=== PATIENT | female | born 1945 | race Caucasian/White ===

== ENCOUNTER 2023-04-18 23:03 | Inpatient (IN) | payer MEDICARE ==
[~2023-04-18] VITALS: Ht 165.1 cm; Wt 65.8 kg
[~2023-04-18 23:03] MED LIST: ALPHA LIPOIC A600 M1 PO; COLLAGEN PEPTIDE; COQ-10100 MG PO; DHEA 10 MG TAB1 EACH PO; FISH OIL 1,0001 EACH PO; L-CARNITINE500 MG PO; LUTEIN 15 MG S1 EACH PO; MAGNESIUM OXID400 MG PO; MELATONIN3 MG PO; PROGESTERONE100 MG PO; VITAMIN C1000 MG PO; [UNRECOGNIZED DRUG - OTHER] PO; [UNRECOGNIZED DRUG - OTHER] PO
[2023-04-18] MEDS ORDERED: SODIUM CHLORIDE 0.9% 1000ML 1,000 ML IV STA (23:11)
[2023-04-18] MEDS ORDERED: ACETAMINOPHEN 325 MG TAB PO STA (23:11)
[2023-04-18] MEDS ORDERED: ONDANSETRON HCL INJ 2MG/ML 2ML 2 MG/ML VIAL IV STA (23:20)
[2023-04-18 23:32] LABS: BASOPHILS % 0.2 % (0.0-1.0); EOSINOPHILS % 0.3 % (0.0-6.0); HEMATOCRIT 32.7 % (34.2-44.1); HEMOGLOBIN 11.4 g/dL (12.0-16.0); LYMPHOCYTES # (AUTO) 0.3 (1.0-3.2); MEAN CORPUSCULAR HEMOGLOBIN 28.7 pg (28-32); MEAN CORPUSCULAR HGB CONC 34.9 g/dL (31-35); MEAN CORPUSCULAR VOLUME 82.4 fL (81-99); MONOCYTES % 0.5 % (4.4-11.3); NEUTROPHILS # (AUTO) 5.7 (2.1-6.9); NEUTROPHILS % 92.9 % (38.7-80.0); PLATELET COUNT 178 x10e3/uL (140-360); RED BLOOD COUNT 3.97 x10e6/uL (3.6-5.1); RED CELL DISTRIBUTION WIDTH 13.3 % (11.7-14.4); WHITE BLOOD COUNT 6.16 x10e3/uL (4.8-10.8)
[2023-04-18 23:39] LABS: CLARITY,URINE CLEAR (CLEAR); COLOR,URINE YELLOW (YELLOW); KETONES,URINE NEGATIVE (NEGATIVE); LEUKOCYTE ESTERASE ,URINE NEGATIVE (NEGATIVE); NITRITE,URINE NEGATIVE (NEGATIVE); PROTEIN,URINE DIPSTICK NEGATIVE (NEGATIVE); URINE UROBILINOGEN 0.2 mg/dL (0.2 - 1)
[2023-04-18 23:41] LABS: WBC,URINE (MAN) 0-5 /HPF (0-5)
[2023-04-18 23:42] LABS: BACTERIA,URINE FEW /HPF; EPITHELIAL CELLS,URINE FEW /LPF
[2023-04-18 23:53] LABS: ALANINE AMINOTRANSFERASE 68 IU/L (0-55); ALBUMIN 3.5 g/dL (3.5-5.0); ALBUMIN/GLOBULIN RATIO 1.2 (0.8-2.0); ALKALINE PHOSPHATASE 99 IU/L (40-150); ANION GAP 16.4 mmol/L (8-16); BLOOD UREA NITROGEN 15 mg/dL (7-26); BUN/CREATININE RATIO 20 (6-25); CALCIUM 9.1 mg/dL (8.4-10.2); CARBON DIOXIDE 25 mmol/L (22-29); CHLORIDE 103 mmol/L (98-107); CREATINE KINASE 53 IU/L (29-168); CREATININE, SERUM 0.74 mg/dL (0.57-1.11); POTASSIUM 3.4 mmol/L (3.5-5.1); SODIUM 141 mmol/L (136-145)
[2023-04-19] VITALS (39 sets, daily range): BP systolic 83–121; BP diastolic 44–78; PULSE 83–126; RESP 8–23; TEMP 98.3–102.8; O2SAT 85–100
[2023-04-19] MEDS ORDERED: IOPAMIDOL 370 MG/ML 100 ML INFUS..BTL INJ ONE (00:10)
[2023-04-19] MEDS ORDERED: SODIUM CHLORIDE 0.9% 1000ML 1,000 ML IV ONE (00:15)
[2023-04-19] MEDS ORDERED: SODIUM CHLORIDE 0.9% 1000ML 1,000 ML IV STA (01:22)
[2023-04-19] MEDS ORDERED: Morphine 4mg INJECTION 4 MG/ML INJ IV PRN (01:30)
[2023-04-19] MEDS ORDERED: ONDANSETRON HCL INJ 2MG/ML 2ML 2 MG/ML VIAL IV PRN (01:30)
[2023-04-19] MEDS: SODIUM CHLORIDE 0.9% 1000ML 1,000 ML IV SCH ×2 (04:26→12:32)
[2023-04-19] MEDS ORDERED: ACETAMINOPHEN 1000 MG/100 ML IV PRN (10:00)
[2023-04-19] MEDS: METRONIDAZOLE 500MG/NS 100ML 100 ML IV SCH ×2 (12:19→19:52)
[2023-04-19] MEDS ORDERED: SODIUM CHLORIDE 0.9% 500ML 500 ML IV ONE (15:00)
[2023-04-19] MEDS: POTASSIUM CHLORIDE 40 MEQ in SODIUM CHLORIDE 0.9% 1000ML 1,000 ML IV SCH ×2 (16:14→23:33)
[2023-04-20] VITALS (21 sets, daily range): BP systolic 98–140; BP diastolic 53–88; PULSE 55–106; RESP 17–27; TEMP 97.7–100.5; O2SAT 94–99
[2023-04-20 06:15] LABS: BASOPHILS % 0.3 % (0.0-1.0); EOSINOPHILS % 0.1 % (0.0-6.0); HEMATOCRIT 28.3 % (34.2-44.1); HEMOGLOBIN 9.6 g/dL (12.0-16.0); LYMPHOCYTES # (AUTO) 0.6 (1.0-3.2); MEAN CORPUSCULAR HGB CONC 33.9 g/dL (31-35); MEAN CORPUSCULAR VOLUME 85.5 fL (81-99); MONOCYTES # (AUTO) 0.5 (0.2-0.8); MONOCYTES % 7.4 % (4.4-11.3); NEUTROPHILS # (AUTO) 5.7 (2.1-6.9); NEUTROPHILS % 82.6 % (38.7-80.0); PLATELET COUNT 161 x10e3/uL (140-360); RED BLOOD COUNT 3.31 x10e6/uL (3.6-5.1); RED CELL DISTRIBUTION WIDTH 14.1 % (11.7-14.4); WHITE BLOOD COUNT 6.89 x10e3/uL (4.8-10.8)
[2023-04-20 06:53] LABS: ALBUMIN 2.5 g/dL (3.5-5.0); ANION GAP 12.5 mmol/L (8-16); CREATININE, SERUM 0.63 mg/dL (0.57-1.11); POTASSIUM 3.5 mmol/L (3.5-5.1)
[2023-04-20] MEDS: POTASSIUM CHLORIDE 40 MEQ in SODIUM CHLORIDE 0.9% 1000ML 1,000 ML IV SCH (15:37)
[2023-04-20] MEDS: HYDROCODONE/APAP 5MG-325MG TAB PO PRN ×2 (15:37→21:10)
[2023-04-21] VITALS (26 sets, daily range): BP systolic 102–140; BP diastolic 58–83; PULSE 41–97; RESP 13–27; TEMP 97.6–100.3; O2SAT 94–100
[2023-04-21] MEDS: POTASSIUM CHLORIDE 40 MEQ in SODIUM CHLORIDE 0.9% 1000ML 1,000 ML IV SCH ×3 (06:26→20:17)
[2023-04-21] MEDS: HYDROCODONE/APAP 5MG-325MG TAB PO PRN ×5 (08:12→20:37)
[2023-04-22] VITALS (19 sets, daily range): BP systolic 108–147; BP diastolic 67–90; PULSE 80–99; RESP 12–25; TEMP 98.5–100.3; O2SAT 95–100
[2023-04-22] MEDS: POTASSIUM CHLORIDE 40 MEQ in SODIUM CHLORIDE 0.9% 1000ML 1,000 ML IV SCH ×2 (05:42→15:54)
[2023-04-22] MEDS: HYDROCODONE/APAP 5MG-325MG TAB PO PRN ×2 (09:19→21:36)
[2023-04-22 11:45] LABS: BASOPHILS % 0.1 % (0.0-1.0); EOSINOPHILS # (AUTO) 0.1 (0.0-0.4); EOSINOPHILS % 0.8 % (0.0-6.0); HEMATOCRIT 30.2 % (34.2-44.1); HEMOGLOBIN 10.7 g/dL (12.0-16.0); LYMPHOCYTES # (AUTO) 0.6 (1.0-3.2); LYMPHOCYTES % 7.9 % (18.0-39.1); MEAN CORPUSCULAR HEMOGLOBIN 28.5 pg (28-32); MEAN CORPUSCULAR HGB CONC 35.4 g/dL (31-35); MEAN CORPUSCULAR VOLUME 80.3 fL (81-99); MONOCYTES # (AUTO) 0.7 (0.2-0.8); MONOCYTES % 8.7 % (4.4-11.3); NEUTROPHILS # (AUTO) 6.3 (2.1-6.9); NEUTROPHILS % 82.1 % (38.7-80.0); PLATELET COUNT 215 x10e3/uL (140-360); RED BLOOD COUNT 3.76 x10e6/uL (3.6-5.1); RED CELL DISTRIBUTION WIDTH 13.7 % (11.7-14.4); WHITE BLOOD COUNT 7.63 x10e3/uL (4.8-10.8)
[2023-04-22 11:59] LABS: ANION GAP 11.7 mmol/L (8-16); CALCIUM 8.8 mg/dL (8.4-10.2); CREATININE, SERUM 0.62 mg/dL (0.57-1.11); POTASSIUM 3.7 mmol/L (3.5-5.1)
[2023-04-22] MEDS ORDERED: ONDANSETRON HCL 4 MG ORAL DISINTEGRATING TAB PO PRN (15:00)
[2023-04-23] VITALS (11 sets, daily range): BP systolic 112–127; BP diastolic 69–86; PULSE 80–91; RESP 16–18; TEMP 97.5–99; O2SAT 94–100
[2023-04-23] MEDS: POTASSIUM CHLORIDE 40 MEQ in SODIUM CHLORIDE 0.9% 1000ML 1,000 ML IV SCH ×3 (02:12→22:26)
[2023-04-23] MEDS: HYDROCODONE/APAP 5MG-325MG TAB PO PRN ×3 (08:44→22:35)
[2023-04-23] MEDS: MEROPENEM 1 GM in SODIUM CHLORIDE 0.9% 100 ML IV SCH ×2 (17:25→22:24)
[2023-04-24] VITALS (8 sets, daily range): BP systolic 102–128; BP diastolic 64–75; PULSE 78–93; RESP 17–18; TEMP 97.3–98.2; O2SAT 95–98
[2023-04-24] MEDS: HYDROCODONE/APAP 5MG-325MG TAB PO PRN ×2 (06:21→14:00)
[2023-04-24] MEDS: MEROPENEM 1 GM in SODIUM CHLORIDE 0.9% 100 ML IV SCH ×2 (09:30→17:02)
[2023-04-24] MEDS: POTASSIUM CHLORIDE 40 MEQ in SODIUM CHLORIDE 0.9% 1000ML 1,000 ML IV SCH (10:10)
[2023-04-25] MEDS ORDERED: PANTOPRAZOLE SOD 40 MG TABEC PO SCH (07:30)
== END 2023-04-24 18:41 | disposition home or self-care (01) | DRG 862 ==
LOC: ER 23:05 → ERHOLD 04-19 01:24 → ICU 04-19 02:35 → MED/SURG3 04-22 11:53
PROVIDERS: ADMIT Internal Medicine; ATTEND Internal Medicine
PROC: 02HV33Z Insertion of Infusion Device into Superior Vena Cava, Percutaneous Approach (ICD-10-PCS; principal; 2023-04-23)
DX: T81.44XA Sepsis following a procedure, initial encounter (principal); A41.51 Sepsis due to Escherichia coli [E. coli]; K65.1 Peritoneal abscess; T81.12XA Postprocedural septic shock, initial encounter; E87.20 Acidosis, unspecified; D68.9 Coagulation defect, unspecified; Z16.12 Extended spectrum beta lactamase (ESBL) resistance; K91.871 Postprocedural hematoma of a digestive system organ or structure following other procedure; E87.6 Hypokalemia; M06.9 Rheumatoid arthritis, unspecified; M19.90 Unspecified osteoarthritis, unspecified site; D64.9 Anemia, unspecified; R79.89 Other specified abnormal findings of blood chemistry; G89.29 Other chronic pain; Z11.52 Encounter for screening for COVID-19; Z90.49 Acquired absence of other specified parts of digestive tract
CPT/HCPCS: 36415; 36569; 70450; 71045; 74177; 80048; 80053; 81001; 82270; 82550; 83605; 84484; 85025; 87040; 87071; 87186; 87205; 87324; 87449; 93005; 94799; 99252; 99284; J2185; J2270; J2405; J2543; J3480; J7030; J7050; Q9967; U0002